=== PATIENT | male | born 1975 | race Caucasian/White ===

== ENCOUNTER 2020-07-19 16:50 | Emergency (ER) | payer OTHER, SELFPAY ==
[2020-07-19 17:05] VITALS: BP 160/95; PULSE 90; RESP 20; TEMP 36.5; O2SAT 97
--- NOTE | 2020-07-19 17:06 | ED.GENADULT ---
HPI - General Adult General Chief complaint: Skin/Abscess/Foreign Body Stated complaint: boil on neck Time Seen by Provider: 07/19/20 17:06 Source: patient and RN notes reviewed Mode of arrival: ambulatory Limitations: no limitations History of Present Illness HPI narrative: 44-year-old male presents with complaints of with redness, tenderness, and swelling to back of neck for the past 3 days. Erasmo reports increase in tenderness and swelling over the past 24 hours. No drainage. Reports spouse attempted to drainage 3 days ago without success, no other treatment. No history of skin abscess. No fever or chills. No abdominal pain, nausea, and vomiting. Tolerating po intake well. Remains active. Tetanus up to date. The patient reports he have not been diagnosed with COVID-19. The patient reports he is not waiting for the results of a COVID-19 lab test. The patient reports he do not have chills, weakness, or fatigue. The patient reports he do not have a new or worsening cough or shortness of breath. Denies chest pain. The patient reports he do not have any rhinorrhea, congestion, loss of taste or smell, sore throat, or diarrhea. 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 Denies concerns for COVID-19 or exposures been home with limited outdoor exposure except for essential household needs, work, and return home. At this time, patient is not suspected of having COVID-19. Some parts of this dictation were generated by voice recognition software and may contain typographical and/or grammatical inaccuracies. Related Data Home Medications Medication Instructions Recorded Confirmed dulaglutide [Trulicity] 3 mg SUBCUT WEEKLY 07/19/20 07/19/20 fluticasone propion-salmeterol inh INHALATION BID 07/19/20 [Advair Diskus] glipizide 10 mg PO DAILY 07/19/20 07/19/20 hydrochlorothiazide 12.5 mg DAILY 07/19/20 07/19/20 losartan 50 mg DAILY 07/19/20 07/19/20 metformin 500 mg PO BID 07/19/20 07/19/20 pravastatin 40 mg DAILY 07/19/20 07/19/20 Allergies Allergy/AdvReac Type Severity Reaction Status Date / Time No Known Allergies Allergy Verified 07/19/20 17:06 Review of Systems Review of Systems: Narrative: CONSTITUTIONAL: Denies fever, chills, sweats. EYES: Denies visual changes, redness, discharge. ENT: Denies rhinorrhea, congestion, sore throat, otalgia. CARDIOVASCULAR: Denies chest pain, palpitations, edema. RESPIRATORY: Denies dyspnea, wheezing, cough. GASTROINTESTINAL: Denies abdominal pain, nausea, vomiting, diarrhea. GENITOURINARY: Denies dysuria, hematuria, abnormal discharge. SKIN: Denies rash or itching. Back of neck with redness, tenderness, swelling. Denies drainage. MUSCULOSKELETAL: Denies acute back pain, joint pain, or myalgia. NEUROLOGIC: Denies numbness or focal weakness. PSYCHIATRIC: Denies anxiety or depression. All systems reviewed & are unremarkable except as noted in HPI and below. [facility] Past Medical History Medical History (Updated 07/19/20 @ 17:36 by JAIRO Bellamy) Allergies Asthma Diabetes Hypercholesteremia Sleep apnea with use of continuous positive airway pressure (CPAP) Surgical History Surgical History (Updated 07/19/20 @ 17:36 by JAIRO Bellamy) No significant past surgical history Family History Family History (Updated 07/19/20 @ 17:48 by JAIRO Bellamy) Father Medical history unknown Mother Diabetes mellitus Hypertension Asthma Social History Social History (Updated 07/19/20 @ 17:48 by JAIRO Bellamy) Smoking status: Never smoker Tobacco type: cigarettes Second hand tobacco smoke exposure: No Alcohol intake: current Substance use: never Living arrangements: with family Occupation/Education: occupation 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
[2020-07-19 17:09] VITALS: BP 160/95; PULSE 90; RESP 20; TEMP 36.5; O2SAT 97
[2020-07-19 17:31] VITALS: BP 160/82
== END 2020-07-19 17:31 | disposition home or self-care (01) ==
PROVIDERS: Emergency Provider Nurse Practitioner Family
DX: L02.11 Cutaneous abscess of neck (principal); J45.909 Unspecified asthma, uncomplicated; E11.9 Type 2 diabetes mellitus without complications; E78.00 Pure hypercholesterolemia, unspecified; G47.30 Sleep apnea, unspecified
CPT/HCPCS: 99203; G0463